=== PATIENT | female | born 1995 | race Caucasian/White ===

== ENCOUNTER 2021-01-07 16:44 | Emergency (ER) | payer OTHER ==
[~2021-01-07] VITALS: Ht 167.6 cm; Wt 68.2 kg
[2021-01-07 16:49] VITALS: BP 107/61
== END 2021-01-07 18:26 | disposition home or self-care (01) ==
LOC: EMS 16:49
DX: R51.9 Headache, unspecified (principal); Z20.822 Contact with and (suspected) exposure to COVID-19
CPT/HCPCS: 99283; U0003

== ENCOUNTER 2022-04-07 17:33 | Emergency (ER) | payer OTHER ==
[~2022-04-07] VITALS: Ht 165.1 cm; Wt 72.7 kg
[2022-04-07] MEDS ORDERED: IBUP-2070 PO (19:40)
[2022-04-07 19:46] VITALS: BP 112/54
== END 2022-04-07 19:54 | disposition home or self-care (01) ==
LOC: EMS 17:33
DX: S93.402A Sprain of unspecified ligament of left ankle, initial encounter (principal); W01.0XXA Fall on same level from slipping, tripping and stumbling without subsequent striking against object, initial encounter; Y93.41 Activity, dancing; Y92.89 Other specified places as the place of occurrence of the external cause; Y99.8 Other external cause status
CPT/HCPCS: 29515; 99283